=== PATIENT | female | born 1990 | race Caucasian/White ===

== ENCOUNTER 2017-02-16 03:16 | Emergency (ER) | payer MEDICAID, MEDICARE ==
[~2017-02-16] VITALS: Ht 152.4 cm; Wt 41.3 kg
[2017-02-16 03:20] VITALS: BP 114/63
--- NOTE | 2017-02-16 03:29 | NUR ---
PT TAKEN TO BED 5
--- NOTE | 2017-02-16 03:31 | NUR ---
PT IS 26/F BIB MOTHER TO ED WITH C/O HEAVY MESTRUAL PERIOD X 2 DAYS WITH ABDOMINAL PAIN SINCE 2300 TONIGHT. TOOK ADVIL 2 HRS, NOT RELIEF. PT STATES MED HX OF 4 PREGNANCIES 2 MISCARRIAGES. DENIES N/V/D; SKIN IS PINK/WARM/DRY; AAOX4 WITH EVEN AND STEADY GAIT; LUNGS CLEAR BL; HR EVEN AND REGULAR; PT DENIES ANY FEVER, CP, SOB, OR COUGH AT THIS TIME; PATIENT STATES PAIN OF 10/10 AT THIS TIME; VSS; PATIENT POSITIONED FOR COMFORT; HOB ELEVATED; BEDRAILS UP X2; BED DOWN. ER MD MADE AWARE OF PT STATUS.
--- NOTE | 2017-02-16 03:32 | NUR ---
Dr. Rivers evaluating patient at bedside.
[2017-02-16 03:53] LABS: HEMATOCRIT 36.5 % (36-48); HEMOGLOBIN 12.1 g/dL (12.0-16.0); MEAN CORPUSCULAR HEMOGLOBIN 30 pg (27-31); MEAN CORPUSCULAR HGB CONC 33 g/dL (33-37); MEAN CORPUSCULAR VOLUME 92 fL (80-94); PLATELET COUNT (AUTO) 224 K/uL (140-450); RED BLOOD CELL COUNT(AUTO) 3.99 MIL/uL (4.20-5.40); WHITE BLOOD COUNT (AUTO) 15.3 K/uL (4.8-10.8)
[2017-02-16 04:06] LABS: APPEARANCE,URINE CLOUDY (CLEAR); BILIRUBIN,URINE NEGATIVE (NEGATIVE); BLOOD, URINE 3+ (NEGATIVE); COLOR,URINE RED (YELLOW); LEUKOCYTE ESTERASE ,URINE NEGATIVE (NEGATIVE); NITRITE, URINE NEGATIVE (NEGATIVE); PROTEIN,URINE 2+ (NEGATIVE); UGLUCOSE NEGATIVE (NEGATIVE); UROBILINOGEN,URINE 0.2 EU/dL (0.2 - 1)
[2017-02-16 04:08] LABS: BACTERIA,URINE OCCASSIONAL /HPF (None Seen); RBC,URINE TOO NUMEROUS TO COUN /HPF (0-5); SQUAMOUS EPITHELIAL CELL,UR 0-3 (FEW) /LPF (0-3 (FEW)); WBC,URINE 0-5 (RARE) /HPF (0-5)
--- NOTE | 2017-02-16 04:08 | NUR ---
PT TAKEN TO ULTRA SOUND
[2017-02-16 04:19] LABS: LYMPHOCYTES % (MANUAL) 8 % (20-46); MONOCYTES % (MANUAL) 3 % (5-12); NEUTROPHILS % (MANUAL) 89 (43-65)
[2017-02-16 04:21] LABS: POTASSIUM 3.8 mmol/L (3.5-5.1)
[2017-02-16 04:22] LABS: ANION GAP 11.5 (8-16); CALCIUM 8.5 mg/dL (8.5-10.1); CARBON DIOXIDE 25.3 mmol/L (21-32); CREATININE 0.5 mg/dL (0.6-1.3)
[2017-02-16 04:30] LABS: ALBUMIN 3.3 g/dL (3.4-5.0); TOTAL BILIRUBIN 0.3 mg/dL (0.0-1.0); TOTAL PROTEIN, SERUM 6.8 g/dL (6.4-8.2)
--- NOTE | 2017-02-16 04:30 | NUR ---
PT RETURN FROM ULTRA SOUND
--- NOTE | 2017-02-16 05:22 | NUR ---
PT APPEARS TO BE SLEEPING IN BED. NO SOB NOTED AT THIS TIME. MOTHER AT BEDSIDE. WILL CONTTINUE TO MONITOR.
[2017-02-16 06:07] VITALS: BP 112/70
--- NOTE | 2017-02-16 06:08 | NUR ---
Patient discharged with v/s stable. Written and verbal after care instructions given and explained. Patient alert, oriented and verbalized understanding of instructions. Ambulatory with steady gait. All questions addressed prior to discharge. ID band removed. Patient advised to follow up with PMD. NO Rx WERE given. Patient educated on indication of medication including possible reaction and side effects. Opportunity to ask questions provided and answered.
== END 2017-02-16 06:08 | disposition home or self-care (01) ==
LOC: MED 03:16
DX: O20.0 Threatened abortion (principal)
CPT/HCPCS: 36415; 76801; 80053; 81001; 81025; 84702; 85025; 86900; 86901; 99285

== ENCOUNTER 2023-04-22 18:31 | Emergency (ER) | payer BC, MEDICAID ==
[~2023-04-22] VITALS: Ht 152.4 cm; Wt 51.3 kg
[2023-04-22 19:10] VITALS: BP 99/47; PULSE 72; RESP 20; TEMP 99.1; O2SAT 99
[2023-04-22] MEDS ORDERED: [UNRECOGNIZED DRUG - CODE] PO (19:42)
--- NOTE | 2023-04-22 19:55 | NUR ---
Seen and evaluated by [facility]
--- NOTE | 2023-04-22 19:56 | NUR ---
Patient discharged with v/s stable. Written and verbal after care instructions given and explained. New rx buspirone. Patient verbalized understanding. Ambulatory with steady gait. All questions addressed prior to discharge. Advised to follow up with PMD.
[2023-04-22 19:57] VITALS: BP 99/47; PULSE 72; RESP 20; TEMP 99.1; O2SAT 99
== END 2023-04-22 19:56 | disposition home or self-care (01) ==
LOC: MED 18:31
DX: F41.9 Anxiety disorder, unspecified (principal); R51.9 Headache, unspecified; Z76.0 Encounter for issue of repeat prescription; Z79.899 Other long term (current) drug therapy
CPT/HCPCS: 99281

== ENCOUNTER 2024-01-05 16:49 | Emergency (ER) | payer BC ==
[~2024-01-05] VITALS: Ht 152.4 cm; Wt 46.7 kg
[~2024-01-05 16:49] MED LIST: [UNRECOGNIZED DRUG - CODE] PO
[2024-01-05 16:51] VITALS: BP 116/69; PULSE 73; RESP 76; TEMP 98.5; O2SAT 99
[2024-01-05 17:17] VITALS: O2SAT 99
[2024-01-05 18:05] LABS: APPEARANCE,URINE CLEAR (CLEAR); BILIRUBIN,URINE NEGATIVE (NEGATIVE); BLOOD, URINE TRACE-I (NEGATIVE); COLOR,URINE YELLOW (YELLOW); LEUKOCYTE ESTERASE ,URINE NEGATIVE (NEGATIVE); NITRITE, URINE NEGATIVE (NEGATIVE); PH,URINE 8.5 (5.0-9.0); PROTEIN,URINE TRACE (NEGATIVE); UGLUCOSE NEGATIVE (NEGATIVE); UROBILINOGEN,URINE 0.2 EU/dL (0.2 - 1)
[2024-01-05] MEDS ORDERED: diphenhydrAMINE 50 MG/ML VIAL ONE (18:06)
[2024-01-05 18:07] LABS: BASOPHILS # (AUTO) 0.1 K/uL (0.00-0.22); BASOPHILS % (AUTO) 0.8 % (0.0-2.0); EOSINOPHILS # (AUTO) 0.2 K/uL (0-0.4); EOSINOPHILS % (AUTO) 2.6 % (0.0-4.0); HEMATOCRIT 35.8 % (36-48); HEMOGLOBIN 12.8 g/dL (12.0-16.0); LYMPHOCYTES # (AUTO) 2.4 K/uL (2.5-16.5); LYMPHOCYTES % (AUTO) 37.8 % (20.5-51.1); MEAN CORPUSCULAR HEMOGLOBIN 32 pg (27-31); MEAN CORPUSCULAR HGB CONC 36 g/dL (33-37); MEAN CORPUSCULAR VOLUME 88.8 fL (80-94); MONOCYTES # (AUTO) 0.5 K/uL (0.8-1.0); MONOCYTES % (AUTO) 8.1 % (1.7-9.3); NEUTROPHILS # (AUTO) 3.3 K/uL (1.8-7.7); NEUTROPHILS % (AUTO) 50.7 % (42.2-75.2); PLATELET COUNT (AUTO) 208 K/uL (140-450); RED BLOOD CELL COUNT(AUTO) 4.03 MIL/uL (4.20-5.40); RED CELL DISTRIBUTION WIDTH 12.9 % (11.6-13.7); WHITE BLOOD COUNT (AUTO) 6.5 K/uL (4.8-10.8)
[2024-01-05] MEDS: diphenhydrAMINE 50 MG/ML VIAL IVP ONE (18:07)
[2024-01-05] MEDS: NACL 0.9% 1,000 ML IV ONE (18:10)
[2024-01-05] MEDS: ONDANSETRON 4 MG/2 ML VIAL IVP ONE (18:11)
[2024-01-05] MEDS: DICYCLOMINE 20 MG/2 ML VIAL IM ONE (18:13)
[2024-01-05 18:14] LABS: BACTERIA,URINE 1+ /HPF (None Seen); RBC,URINE 0-5 /HPF (0-5); SQUAMOUS EPITHELIAL CELL,UR 0-3 (FEW) /LPF (0-3 (FEW)); WBC,URINE 0 /HPF (0-5)
[2024-01-05 18:15] LABS: MUCUS,URINE None Seen /LPF (None Seen)
[2024-01-05 18:41] LABS: ANION GAP 12.7 (8-16); CALCIUM 8.4 mg/dL (8.5-10.1); CARBON DIOXIDE 29.5 mmol/L (21-32); CREATININE 0.6 mg/dL (0.6-1.3); POTASSIUM 3.2 mmol/L (3.5-5.1)
[2024-01-05 18:47] LABS: ALBUMIN 3.5 g/dL (3.4-5.0); BILIRUBIN,DIRECT 0.1 mg/dL (0.0-0.3); TOTAL BILIRUBIN 0.3 mg/dL (0.0-1.0); TOTAL PROTEIN, SERUM 6.8 g/dL (6.4-8.2)
[2024-01-05] MEDS: POTASSIUM CHLORIDE 10 MEQ TABER PO ONE (19:21)
[2024-01-05] MEDS ORDERED: ONDA-188 SL (19:32)
[2024-01-05 19:41] VITALS: BP 119/60; PULSE 76; RESP 18; TEMP 98.5; O2SAT 98
== END 2024-01-05 19:41 | disposition home or self-care (01) ==
LOC: MED 16:49
DX: K52.9 Noninfective gastroenteritis and colitis, unspecified (principal); E87.6 Hypokalemia; Z79.899 Other long term (current) drug therapy
CPT/HCPCS: 36415; 80048; 80076; 81001; 81025; 83690; 85025; 96361; 96374; 96375; 99284; J0500; J1200; J2405; J7030